=== PATIENT | female | born 1995 | race Caucasian/White ===

== ENCOUNTER → 2021-09-03 | Outpatient (CLI) | payer OTHER ==
[~2021-09-03] MED LIST: CIPRO500 MG PO; COLACE 100MG C100 MG PO; FERROUS SULFAT325 M2 PO; FLAGYL500 MG PO; IBUPROFEN600 MG PO; LORTAB 5-325 M1 EACH PO; PRENATAL VITAM1 EAC3 PO
== END ==
LOC: CT 14:37
DX: L04.0 Acute lymphadenitis of face, head and neck (principal); K11.8 Other diseases of salivary glands; Z80.9 Family history of malignant neoplasm, unspecified
CPT/HCPCS: 70491; Q9967

== ENCOUNTER → 2021-09-17 | Outpatient (CLI) | payer OTHER | LOC: EMI 15:03 | DX: G43.909 Migraine, unspecified, not intractable, without status migrainosus (principal); R59.0 Localized enlarged lymph nodes | CPT/HCPCS: 70551 ==